=== PATIENT | male | born 1985 | race Caucasian/White ===

== ENCOUNTER 2017-06-21 12:02 | Emergency (ER) | payer BC, OTHER ==
[2017-06-21 12:30] VITALS: BP 108/82
--- NOTE | 2017-06-21 12:35 | UC ---
Respiratory Complaint HPI - HPI Summary HPI Summary: chest tightness x 3 days + fatigue, body aches, chills, ? fever, + cough , chest congestion no chest pain , + sob - History of Current Complaint Chief Complaint: UCChestPain Stated Complaint: TIGHTNESS IN CHEST Time Seen by Provider: 06/21/17 12:12 Hx Obtained From: Patient Onset/Duration: Gradual Onset, Lasting Days - 3, Still Present Timing: Constant Severity Initially: Moderate Severity Currently: Moderate Pain Intensity: 6 Character: Cough: Nonproductive Aggravating Factors: Exertion, Deep Breaths Alleviating Factors: Nothing Associated Signs And Symptoms: Positive: Dyspnea, Fever, Chills, Pleuritic Chest Pain, URI, Nasal Congestion. 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 - Surgical History Surgical History: Yes Surgery Procedure, Year, and Place: abd cyst removed at age 12 - Family History Known Family History: Negative: Diabetes - Social History Alcohol Use: None Substance Use Type: None Substance Use Comment - Amount & Last Used: 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 opiods Smoking Status (MU): Heavy Every Day Tobacco Smoker Type: Cigarettes Amount Used/How Often: 1 PPD Review of Systems Constitutional: Fever, Chills, Fatigue Skin: Negative Eyes: Negative ENT: Nasal Discharge Respiratory: Shortness Of Breath, Cough Cardiovascular: Negative Gastrointestinal: Negative Is Patient Immunocompromised?: No All Other Systems Reviewed And Are Negative: Yes Physical Exam Triage Information Reviewed: Yes Appearance: Pain Distress, Thin Vital Signs: Initial Vital Signs Temp 98.2 F 06/21/17 12:21 Pulse 91 06/21/17 12:21 Resp 22 06/21/17 12:21 BP 108/82 06/21/17 12:21 Pulse Ox 99 06/21/17 12:21 Vital Signs Reviewed: Yes Eyes: Positive: Conjunctiva Clear ENT: Positive: Normal ENT inspection, Hearing grossly normal, Pharynx normal, Pharyngeal erythema Neck: Positive: Supple, Nontender, No Lymphadenopathy Respiratory: Positive: Chest non-tender, Lungs clear, Normal breath sounds, No respiratory distress Cardiovascular: Positive: RRR, No Murmur, Pulses Normal, Brisk Capillary Refill Abdominal Exam: Normal Abdomen Description: Positive: Nontender Bowel Sounds: Positive: Present Skin Exam: Normal UC Diagnostic Evaluation - Laboratory O2 Sat by Pulse Oximetry: 99 - EKG Cardiac Rate: NL Cardiac Rhythm: Sinus: Normal Ectopy: None ST Segment: Normal Respiratory Course/Dx - Differential Dx/Diagnosis Provider Diagnoses: viral illness Discharge - Discharge Plan Condition: Stable Disposition: HOME Prescriptions: hydrOXYzine pamoate [Vistaril] 25 mg PO BEDTIME #15 capsule Patient Education Materials: Viral Syndrome (ED) Referrals: No Primary Care Phys,NOPCP [Primary Care Provider] - 7 Days
== END 2017-06-21 12:43 | disposition home or self-care (01) ==
LOC: UCCORT 12:02
DX: B34.9 Viral infection, unspecified (principal); F17.210 Nicotine dependence, cigarettes, uncomplicated
CPT/HCPCS: 93005; 99212; G0463